=== PATIENT | female | born 1985 | race Caucasian/White ===

== ENCOUNTER 2022-04-09 12:11 | Emergency (ER) | payer OTHER ==
[~2022-04-09] VITALS: Ht 172.7 cm; Wt 70.5 kg
[~2022-04-09 12:11] MED LIST: AMOXICILLIN 8751 TAB PO; CLARITIN 1010 MG/TAB PO; DESYREL 50MG50 MG PO; FLONASE NASAL S16 GM NS; IMITREX100 MG PO; MAG-OX 400400 MG/TAB PO; MULTIPLE VITAMI1 TA5 PO; PHARMASSURE CHE30 MG PO; PREDNISONE10 MG PO; ROBAXIN 50500 MG/TAB PO; VITAMIN B COMPL1 SGL PO; VITAMIN D31000 IU PO
[2022-04-09 12:20] VITALS: TEMP 97
[2022-04-09 14:45] VITALS: BP 95/65; PULSE 55
== END 2022-04-09 15:03 | disposition home or self-care (01) ==
LOC: COL.ER 12:11
DX: G97.1 Other reaction to spinal and lumbar puncture (principal); F17.200 Nicotine dependence, unspecified, uncomplicated
CPT/HCPCS: J2765; J7120

== ENCOUNTER → 2023-08-31 | Outpatient (CLI) | payer OTHER ==
[~2023-08-31] VITALS: Ht 175.3 cm; Wt 93.2 kg
[~2023-08-31] MED LIST changes: +BUSPAR5 MG PO; +LR 1,000 ML IV PRN; +MAGNESIUM500 MG PO; +PRENATAL TABLET PO; +VIIBRYD10 MG PO
--- NOTE | 2023-08-31 10:30 | NUR ---
PT AMBULATORY TO UNIT WITH SPOUSE, ORIENTED TO ROOM AND CHANGED INTO HOSPITAL GOWN. PT ATTACHED TO EFM AND TOCO. PT REPORTS FEELING CONTRACTIONS EVERY 5-7 MINS STARTING AROUND 4 AM THIS MORNING. PT DENIES LOF, DENIES VAGINAL BLEEDING/SPOTTING, REPORTS POSITIVE MOVEMENT. DAV OSEI /-3, PT TOLERATED MODERATELY WELL. ROLES GIVEN REPORT PER THIS RN ON PT REPORTS AND FINDINGS.
[2023-08-31 10:45] VITALS: TEMP 98.5
[2023-08-31 11:10] VITALS: BP 103/59; PULSE 84; TEMP 98.5
--- NOTE | 2023-08-31 11:15 | NUR ---
PT AMBULATORY AROUND UNIT WITH SPOUSE PER PT REQUEST. 20MIN EFM AND TOCO STRIP OBTAINED PRIOR AND PT ABLE TO GET UP.
--- NOTE | 2023-08-31 12:17 | NUR ---
THIS RN EXPLAINS TO PT THAT THEY ARE BEING DISCAHRGED DUE TO UNCHANGED CERVIX. PT EDUCATED ON COUNTING CTX AND FURTHER DISCOMFORTS OF AND TO CONTINUE ATTENDING SCHEDULED DR VISITS. PT ALSO EXPLAINED TO CALL WITH ANY QUESTIONS OR CONCERNS. PT AGREEABLE AND CHANGED OUT OF GOWN. PT AMBULATORY OFF UNIT WITH DISCHARGE PAPER WORK, PT SPOUSE SUPPORTIVE, THIS RN ACCOMPANIES PT OFF UNIT.
== END ==
LOC: LDRO 10:23
DX: O47.9 False labor, unspecified (principal); Z3A.00 Weeks of gestation of pregnancy not specified